=== PATIENT | male | born 1945 | race Caucasian/White ===

== ENCOUNTER 2017-08-13 22:35 | Inpatient (IN) | payer BC, OTHER ==
[2017-08-13 22:52] VITALS: BMI 37.1
[2017-08-14] MEDS ORDERED: SODIUM CHLORIDE 1,000 ML IV ONE (01:18)
[2017-08-14] MEDS ORDERED: ONDANSETRON 4 MG/2 ML VIAL IVPB ONE (01:18)
[2017-08-14] MEDS ORDERED: morphine CARPU-JECT 4 MG/1 ML DISP.SYRIN IVPUSH ONE (01:18)
--- NOTE | 2017-08-14 01:24 | PDOC ---
History of Present Illness - General History Source: Patient Exam Limitations: No Limitations - History of Present Illness Initial Comments: 08/14/17 01:39 The patient is a 72 year old female with no pertinent history who presents to the ED with complaints of right mid/lower quadrant pain since last night. He describes the pain as a constant cramp. The patient complains of associated nausea, vomiting, and diarrhea since last night as well which he describes as watery stool without any blood. He additionally states hes had a loss in appetite and a feeling of lightheadedness. He denies any recent travel, or antibiotic use in the past months. He denies any recent illness, fever, or chills. <Marybeth Pichardo - Last Filed: 08/14/17 01:39> <Emanuel Kenyon - Last Filed: 08/14/17 02:26> <Diana Slade - Last Filed: 08/14/17 07:21> - General Chief Complaint: Nausea/Vomiting Stated Complaint: NAUSEA/VOMITING Time Seen by Provider: 08/13/17 23:39 Past History <Marybeth Pichardo - Last Filed: 08/14/17 01:39> - Past Medical History Diabetes: Yes HTN: Yes - Surgical History Orthopedic Surgery: Yes (2010 right leg sx- metal inserted) - Suicide/Smoking/Psychosocial Hx Smoking Status: No Smoking History: Never smoked Have you smoked in the past 12 months: No Number of Cigarettes Smoked Daily: 0 Information on smoking cessation initiated: No Hx Alcohol Use: No Drug/Substance Use Hx: No Substance Use Type: Alcohol Hx Substance Use Treatment: No <Emanuel Kenyon - Last Filed: 08/14/17 02:26> <Diana Slade - Last Filed: 08/14/17 07:21> - Past Medical History Allergies/Adverse Reactions: Allergies Allergy/AdvReac Type Severity Reaction Status Date / Time No Known Allergies Allergy Verified 08/13/17 22:52 Home Medications: Ambulatory Orders Aspirin [ASA -] 81 mg PO DAILY 03/12/13 Glyburide/Metformin HCl [Glyburide-Metformin 2.5-500 mg] 1 each PO BID 03/12/13 Olmesartan/Hydrochlorothiazide [Benicar Hct 40-25 mg Tablet] 1 each PO DAILY Review of Systems - Review of Systems Constitutional: No: Chills, Fever Respiratory: No: Cough, Shortness of Breath Cardiac (ROS): No: Chest Pain ABD/GI: Yes: See HPI, Diarrhea, Nausea, Vomiting : No: Dysuria All Other Systems: Reviewed and Negative <Emanuel Kenyon - Last Filed: 08/14/17 02:26> *Physical Exam - Vital Signs Last Vital Signs Temp Pulse Resp BP Pulse Ox 99.2 F 81 16 180/90 98 08/13/17 22:50 08/13/17 22:50 08/13/17 22:50 08/13/17 22:50 08/13/17 22:50 - Physical Exam Comments: 08/14/17 01:39 GENERAL: The patient is awake, alert, and fully oriented, in no acute distress. HEAD: Normal with no signs of trauma. EYES: Pupils equal, round and reactive to light, extraocular movements intact, sclera anicteric, conjunctiva clear with no pallor. ENT: Ears normal, nares patent, oropharynx clear without exudates. Dry mucous membranes. NECK: Normal range of motion, supple without lymphadenopathy, JVD, or masses. LUNGS: Breath sounds equal, clear to auscultation bilaterally. No wheeze/ crackles. HEART: Grade III/ systolic ejection murmur. Regular rate and rhythm, normal S1 and S2. ABDOMEN: Tenderness to palpation of right upper and right mid quadrants. Soft/ nondistended. BS wnl. No guarding or rebound. No palpable masses. No hepatosplenomegaly. EXTREMITIES: Normal range of motion, no edema. No clubbing or cyanosis. No cords, erythema, or tenderness. NEUROLOGICAL: Cranial nerves II through XII grossly intact. Normal speech, normal gait. PSYCH: Normal mood, normal affect. SKIN: Warm, Dry, normal turgor, no rashes or lesions noted. <Marybeth Pichardo - Last Filed: 08/14/17 01:39> - Vital Signs Last Vital Signs Temp Pulse Resp BP Pulse Ox 99.2 F 81 16 180/90 98 08/13/17 22:50 08/13/17 22:50 08/13/17 22:50 08/13/17 22:50 08/13/17 22:50 <Emanuel Kenyon - Last Filed: 08/14/17 02:26> - Vital Signs Last Vital Signs Temp Pulse Resp BP Pulse Ox 99.2 F 81 16 180/90 98 08/13/17 22:50 08/13/17 22:50 08/13/17 22:50 08/13/17 22:50 08/13/17 22:50 <Diana Slade - Last Filed: 08/14/17 07:21> ED Treatment Course - LABORATORY CBC & Chemistry Diagram: 08/14/17 01:40 08/14/17 01:40 - RADIOLOGY Radiology Studies Ordered: Category Date Time Status ABDOMEN & PELVIS CT WITH CONTR [CT] Stat CT Scan 08/14/17 01:18 Ordered <Emanuel Kenyon - Last Filed: 08/14/17 02:26> - LABORATORY CBC & Chemistry Diagram: 08/14/17 01:40 08/14/17 01:40 - ADDITIONAL ORDERS Additional order review: Laboratory Results 08/14/17 08/14/17 04:51 01:40 Sodium 142 Potassium 4.0 Chloride 104 Carbon Dioxide 32 D Anion Gap 6 L BUN 14 Creatinine 1.2 Creat Clearance w eGFR 59.51 Random Glucose 191 H D Calcium 9.1 Total Bilirubin 0.6 AST 26 ALT 44 Alkaline Phosphatase 114 D Total Protein 7.3 Albumin 4.0 Lipase 132 Urine Color Ltyellow Urine Appearance Clear Urine pH 5.0 Ur Specific Yale 1.014 Urine Protein Negative Urine Glucose (UA) 1+ H Urine Ketones Trace H Urine Blood Negative Urine Nitrite Negative Urine Bilirubin Negative Urine Urobilinogen Negative Ur Leukocyte Esterase Negative 08/14/17 01:40 RBC 5.20 D MCV 86.6 MCHC 34.0 RDW 13.9 MPV 10.8 Neutrophils % 82.1 D Lymphocytes % 10.8 D Monocytes % 5.6 Eosinophils % 1.1 D Basophils % 0.4 - Medications Given in the ED: ED Medications Discontinued Medications Generic Name Dose Route Start Last Admin Trade Name Freq PRN Reason Stop Dose Admin Sodium Chloride 1,000 mls @ 1,000 mls/hr 08/14/17 01:18 08/14/17 02:00 Normal Saline - IV 08/14/17 02:17 1,000 mls/hr ONCE ONE Administration Morphine Sulfate 4 mg 08/14/17 01:18 08/14/17 02:18 Morphine Injection - IVPUSH 08/14/17 01:19 4 mg ONCE ONE Administration Ondansetron HCl 8 mg 08/14/17 01:18 08/14/17 02:01 Zofran Injection IVPB 08/14/17 01:19 8 mg ONCE ONE Administration <Diana Slade - Last Filed: 08/14/17 07:21> Medical Decision Making - Medical Decision Making 08/14/17 01:19 A portion of this note was documented by scribe services under my direction. I have reviewed the details of the note, within reason, and agree with the documentation with the following case summary and management plan written by me. 72-year-old male with history of diabetes presents with right-sided abdominal pain associated with nausea/vomiting/diarrhea since last night. Nonbloody nonbilious vomiting with watery diarrhea, crampy for persistent right-sided abdominal pain, decreased appetite/by mouth intake with lightheadedness now. No recent sick contacts or travel, no recent antibiotics, no history of abdominal surgeries or recurrent GI infections. Had colonoscopy several years ago but does not recall any abnormalities including diverticulosis. Temp 99.2, vital signs normal Dry mucosa Abdomen is soft and nondistended, right lower and right mid abdominal discomfort without guarding or rebound 72-year-old male with nausea/vomiting/diarrhea/right-sided abdominal pain. Presentation could be consistent with gastroenteritis, but given the focal pain question diverticulitis versus colitis versus appendicitis. labs, ua ivf hydration, anti-emetic, pain control CTAP reassess 08/14/17 02:26 White count 14.5 with normal differential, LFTs and lipase are within normal limits, creatinine normal. Awaiting urinalysis. Awaiting CT of the abdomen and pelvis. Patient was signed out to the oncoming ED physician to follow-up the results, reassess the patient, and dispo accordingly. <Emanuel Kenyon - Last Filed: 08/14/17 02:26> - Medical Decision Making 08/14/17 05:21 I received signout on the patient, and she has mild ketonuria, but no UTI. CT ABD/pelvis pending. 08/14/17 06:54 Patient Name: MASON CANAS THIS IS A PRELIMINARY REPORT FROM [facility] DATE OF SERVICE: 2017-08-14 05:09:26 IMAGES: [id number] EXAM: CT ABDOMEN AND PELVIS with contrast HISTORY: Rule out diverticulitis (further history not provided). COMPARISON: None. FINDINGS: There is mild to moderate wall thickening/edema involving the entire colon. Most likely this represents a pancolitis. Negative for diverticulitis. Negative for appendicitis. No bowel obstruction. Normal kidneys and urinary tracts. Mild thickening of the urinary bladder guerra. Nonspecific but check for UTI. Normal liver. No obvious gallbladder abnormalities. Normal spleen. Normal pancreas. Normal adrenal glands. Osseous structures are intact. THIS DOCUMENT HAS BEEN ELECTRONICALLY SIGNED 08/14/17 07:00 Pt will be admitted to the hospitalist, as he is a patient, who admits to [facility]. Pt will be treated with flagyl, levaquin and ofirmev for fever. <Diana Slade - Last Filed: 08/14/17 07:21> *DC/Admit/Observation/Transfer - Attestations Scribe Attestion: 08/14/17 01:40 Documentation prepared by Marybeth Pichardo, acting as pediatrician/medical doctor for Emanuel Kenyon MD. <Marybeth Pichardo - Last Filed: 08/14/17 01:39> <Emanuel Kenyon - Last Filed: 08/14/17 02:26> - Discharge Dispostion Admit: Yes <Diana Slade - Last Filed: 08/14/17 07:21> Diagnosis at time of Disposition: Vomiting and diarrhea, Pancolitis Abdominal pain Qualifiers: Abdominal location: right lower quadrant Qualified Code(s): R10.31 - Right lower quadrant pain - Discharge Dispostion Condition at time of disposition: Guarded - Referrals Referrals: Shaggy Cho [Primary Care Provider] - - Patient Instructions - Post Discharge Activity
[2017-08-14] MEDS ORDERED: ONDANSETRON 4 MG/2 ML VIAL ONE (01:45)
[2017-08-14] MEDS ORDERED: MORPHINE SULFATE 10 MG/1 ML *VIAL ONE (01:45)
[2017-08-14 01:48] LABS: BASO % 0.4 % (0-2.0); EOS % 1.1 % (0-4.5); HEMATOCRIT 45.1 % (35.4-49); HEMOGLOBIN 15.3 GM/dL (11.7-16.9); LYMPH % 10.8 % (8-40); MCH 29.4 pg (25.7-33.7); MEAN CELL VOLUME 86.6 fl (80-96); MEAN PLT VOLUME 10.8 fl (7.5-11.1); MONO % 5.6 % (3.8-10.2); NEUT % 82.1 % (42.8-82.8); PLATELET COUNT 143 K/MM3 (134-434); RDW 13.9 % (11.9-15.9); WHITE BLOOD COUNT 14.5 K/mm3 (4.0-10.0)
[2017-08-14 02:13] LABS: ALK PHOS 114 U/L (45-117); ANION GAP 6 (8-16); BILIRUBIN,TOTAL 0.6 mg/dL (0.2-1.0); BLOOD UREA NITROGEN 14 mg/dL (7-18); CALCIUM 9.1 mg/dL (8.5-10.1); CHLORIDE 104 mmol/L (98-107); CO2 32 mmol/L (21-32); CREATININE 1.2 mg/dL (0.7-1.3); GLUCOSE,RANDOM 191 mg/dL (74-106); LIPASE 132 U/L (73-393); SGPT/ALT 44 U/L (12-78); SODIUM 142 mmol/L (136-145); TOT PROT 7.3 g/dl (6.4-8.2)
[2017-08-14 02:18] LABS: SGOT/AST 26 U/L (15-37)
[2017-08-14 05:00] LABS: URINE APPEARANCE CLEAR; URINE BILIRUBIN NEGATIVE (NEGATIVE); URINE BLOOD NEGATIVE (NEGATIVE); URINE COLOR LTYELLOW; URINE GLUCOSE (UA) 1+ (NEGATIVE); URINE KETONE TRACE (NEGATIVE); URINE LEUK ESTERASE NEGATIVE (NEGATIVE); URINE NITRITE NEGATIVE (NEGATIVE); URINE PROTEIN NEGATIVE (NEGATIVE); URINE UROBILINOGEN NEGATIVE mg/dL (0.2-1.0)
[2017-08-14] MEDS ORDERED: LEVOFLOXACIN 500 MG IVPB 500 MG/100 ML BAG IVPB ONE ×2 (06:54→07:37)
[2017-08-14] MEDS ORDERED: METRONIDAZOLE 500 MG PREMIXED 500 MG/100 ML MG IVPB ONE ×3 (06:55→18:38)
[2017-08-14] MEDS ORDERED: ACETAMINOPHEN 1000 MG/100 ML VIAL (NON FORMULARY) IVPB ONE (06:58)
[2017-08-14] MEDS ORDERED: ACETAMINOPHEN INJECTION 100 ML IVPB ONE (07:37)
[2017-08-14] MEDS ORDERED: ONDANSETRON 4 MG/2 ML VIAL IVPUSH PRN (10:12)
--- NOTE | 2017-08-14 10:18 | HP ---
Admitting History and Physical - Admission History of Present Illness: 72 year old female with no pertinent history who presents to the ED with complaints of right mid/lower quadrant pain since last night. He describes the pain as a constant cramp. The patient complains of associated nausea, vomiting, and diarrhea since last night as well which he describes as watery stool with blood. He additionally states hes had a loss in appetite and a feeling of lightheadedness. He denies any recent travel, or antibiotic use in the past months. He denies any recent illness, fever, or chills. - Past Medical History Cardiovascular: Yes: HTN, Hyperlipdemia. No: CAD Pulmonary: No: COPD Gastrointestinal: No: Crohn's Disease, GI Bleed, Pancreatitis, Peptic Ulcer Disease Endocrine: Yes: Diabetes Mellitus - Smoking History Smoking history: Never smoked Have you smoked in the past 12 months: No Aproximately how many cigarettes per day: 0 - Alcohol/Substance Use Hx Alcohol Use: No Home Medications - Allergies Allergies/Adverse Reactions: Allergies Allergy/AdvReac Type Severity Reaction Status Date / Time No Known Allergies Allergy Verified 08/13/17 22:52 - Home Medications Home Medications: Ambulatory Orders Amlodipine/Atorvastatin [Amlodipine-Atorvast 5-20 mg] 1 each PO DAILY 08/14/17 Aspirin [ASA -] 81 mg PO DAILY 08/14/17 Atorvastatin Ca [Lipitor] 40 mg PO HS 08/14/17 Carvedilol [Coreg] 12.5 mg PO BID 08/14/17 Folic Acid 1 mg PO DAILY 08/14/17 Gabapentin [Neurontin -] 100 mg PO Q12H 08/14/17 Insulin Degludec/Liraglutide [Xultophy 100 Unit-3.6 mg/ml] 30 unit SQ AM Insulin Lispro [Humalog] 25 unit SQ AM 08/14/17 Omeprazole/Sodium Bicarbonate [Omeprazole-Bicarb 40-1,100 Cap] 1 each PO DAILY 08/14/17 Review of Systems - Review of Systems Neck: reports: No Symptoms Cardiovascular: denies: Chest Pain, Edema Respiratory: denies: Cough, SOB, Wheezing Gastrointestinal: reports: Abdominal Pain, Diarrhea, Nausea, Rectal Bleeding Physical Examination Vital Signs: Vital Signs Temperature 98.9 F 08/14/17 07:30 Pulse Rate 75 08/14/17 07:30 Respiratory Rate 18 08/14/17 07:30 Blood Pressure 167/84 08/14/17 07:30 O2 Sat by Pulse Oximetry (%) 99 08/14/17 07:30 Cardiovascular: Yes: Regular Rate and Rhythm Respiratory: Yes: Regular, CTA Bilaterally Gastrointestinal: Yes: Normal Bowel Sounds, Soft, Tenderness Edema: No Labs: CBC, BMP 08/14/17 01:40 08/14/17 01:40 Imaging - Results Cat Scan: Report Reviewed Problem List - Problems (1) Pancolitis Assessment/Plan: iv abx ivf npo gi consult Code(s): K51.00 - ULCERATIVE (CHRONIC) PANCOLITIS WITHOUT COMPLICATIONS (2) HTN (hypertension) Code(s): I10 - ESSENTIAL (PRIMARY) HYPERTENSION (3) Abdominal pain Assessment/Plan: GI CONSULT MONITOR Code(s): R10.9 - UNSPECIFIED ABDOMINAL PAIN Qualifiers: Abdominal location: right lower quadrant Qualified Code(s): R10.31 - Right lower quadrant pain (4) Diabetes Assessment/Plan: HOLD MEDS SS ENDO Code(s): E11.9 - TYPE 2 DIABETES MELLITUS WITHOUT COMPLICATIONS
[2017-08-14] MEDS ORDERED: PIPERACILLIN/TAZOB 3.375 GM 3.375 GM in DEXTROSE 5%-WATER - 100 ML IVPB SCH (10:30)
[2017-08-14] MEDS ORDERED: PIPERACILLIN/TAZOB 3.375 GM 3.375 GM in DEXTROSE 5%-WATER - 100 ML IVPB ONE (10:45)
[2017-08-14 11:03] LABS: BASO % 0.1 % (0-2.0); EOS % 2.2 % (0-4.5); HEMOGLOBIN 14.6 GM/dL (11.7-16.9); MCHC 33.1 g/dl (32.0-35.9); MEAN CELL VOLUME 87.7 fl (80-96); MEAN PLT VOLUME 10.1 fl (7.5-11.1); MONO % 9.2 % (3.8-10.2); NEUT % 75.5 % (42.8-82.8); PLATELET COUNT 130 K/MM3 (134-434); RBC 5.02 M/mm3 (4.00-5.60); RDW 13.9 % (11.9-15.9); WHITE BLOOD COUNT 13.5 K/mm3 (4.0-10.0)
[2017-08-14 11:36] LABS: ALBUMIN 3.3 g/dl (3.4-5.0); ANION GAP 10 (8-16); BILIRUBIN,TOTAL 0.7 mg/dL (0.2-1.0); BLOOD UREA NITROGEN 11 mg/dL (7-18); CALCIUM 8.1 mg/dL (8.5-10.1); CHLORIDE 105 mmol/L (98-107); CO2 27 mmol/L (21-32); CREATININE 1.1 mg/dL (0.7-1.3); GLUCOSE,RANDOM 173 mg/dL (74-106); POTASSIUM 3.9 mmol/L (3.5-5.1); SGOT/AST 22 U/L (15-37); SGPT/ALT 36 U/L (12-78); SODIUM 142 mmol/L (136-145); TOT PROT 6.6 g/dl (6.4-8.2)
[2017-08-14 11:37] LABS: ALK PHOS 110 U/L (45-117)
[2017-08-14] MEDS ORDERED: PIPERACILLIN/TAZOB 3.375 GM 3.375 GM/50 ML BAG IVPB ONE (11:37)
[2017-08-14] MEDS ORDERED: VALSARTAN 80 MG TABLET (UD) ONE ×2 (11:37→21:55)
--- NOTE | 2017-08-14 11:38 | EKG ---
Test Reason : Blood Pressure : / mmHG Vent. Rate : 078 BPM Atrial Rate : 078 BPM P-R Int : 172 ms QRS Dur : 140 ms QT Int : 396 ms P-R-T Axes : 043 014 146 degrees QTc Int : 451 ms NORMAL SINUS RHYTHM RIGHT BUNDLE BRANCH BLOCK T WAVE ABNORMALITY, CONSIDER INFEROLATERAL ISCHEMIA ABNORMAL ECG WHEN COMPARED WITH ECG OF 12-MAR-2013 08:49, T WAVE INVERSION MORE EVIDENT IN ANTERIOR LEADS Confirmed by MD KINDRA, MICHOACANO ([id number]) on 08/14/2017 11:37:48 AM Referred By: Confirmed By:MICHOACANO ARGUELLES MD
[2017-08-14] MEDS ORDERED: INSULIN (NOVOLOG) ASPART 100 UNITS/ML 10ML VIAL ONE (11:39)
[2017-08-14] MEDS: VALSARTAN 80 MG TABLET (UD) PO SCH ×2 (11:52→22:05)
[2017-08-14] MEDS: INSULIN SLIDING SCALE (NOVOLOG) 1 VIAL SQ SCH ×3 (11:52→22:06)
[2017-08-14] MEDS: PIPERACILLIN/TAZOB 3.375 GM 3.375 GM in DEXTROSE 5%-WATER - 100 ML IVPB SCH ×2 (11:52→18:36)
--- NOTE | 2017-08-14 14:19 | CON.GI ---
Consult Consult Specialty:: GI Referred by:: Shaggy Cho/ Piyush - History of Present Illness History of Present Illness: 72 y/o male was doing well untill 3 days ago when he developed diarrhea 6-10 times a day, non-bloody,no recent travel history, no recent antibiotic use, associated with nausea, vomiting abdominal pain and fever. Today he feels better and is hungry. - Alcohol/Substance Use Hx Alcohol Use: No - Smoking History Smoking history: Never smoked Have you smoked in the past 12 months: No Aproximately how many cigarettes per day: 0 Home Medications - Allergies Allergies/Adverse Reactions: Allergies Allergy/AdvReac Type Severity Reaction Status Date / Time No Known Allergies Allergy Verified 08/13/17 22:52 - Home Medications Home Medications: Ambulatory Orders Amlodipine/Atorvastatin [Amlodipine-Atorvast 5-20 mg] 1 each PO DAILY 08/14/17 Aspirin [ASA -] 81 mg PO DAILY 08/14/17 Atorvastatin Ca [Lipitor] 40 mg PO HS 08/14/17 Carvedilol [Coreg] 12.5 mg PO BID 08/14/17 Folic Acid 1 mg PO DAILY 08/14/17 Gabapentin [Neurontin -] 100 mg PO Q12H 08/14/17 Insulin Degludec/Liraglutide [Xultophy 100 Unit-3.6 mg/ml] 30 unit SQ AM Insulin Lispro [Humalog] 25 unit SQ AM 08/14/17 Omeprazole/Sodium Bicarbonate [Omeprazole-Bicarb 40-1,100 Cap] 1 each PO DAILY 08/14/17 Review of Systems - Review of Systems Constitutional: reports: Fever Eyes: denies: Blind Spots HENT: denies: Difficult Swallowing Neck: denies: Decreased ROM Cardiovascular: denies: Chest Pain Respiratory: denies: SOB Gastrointestinal: reports: Abdominal Pain, Diarrhea, Nausea, Vomiting. denies: Constipation, Dysphagia, Melena, Rectal Bleeding, Vomiting Blood Physical Exam-GI Vital Signs: Vital Signs Temperature 98.9 F 08/14/17 07:30 Pulse Rate 73 08/14/17 12:24 Respiratory Rate 18 08/14/17 12:24 Blood Pressure 183/89 08/14/17 12:24 O2 Sat by Pulse Oximetry (%) 96 08/14/17 12:24 Constitutional: Yes: Well Nourished Eyes: Yes: Conjunctiva Clear Neck: Yes: Trachea Midline Cardiovascular: Yes: Regular Rate and Rhythm Respiratory: Yes: CTA Bilaterally ...Palpate: Yes: Soft. No: Firm/Rigid, Guarding, Hepatomegaly, Mass, Pulsatile Mass, Splenomegaly, Tenderness, Tenderness, Epigastium Labs: CBC, BMP 08/14/17 10:54 08/14/17 10:54 Home Medications Medication Instructions Recorded Amlodipine/Atorvastatin 1 each PO DAILY 08/14/17 [Amlodipine-Atorvast 5-20 mg] Aspirin [ASA -] 81 mg PO DAILY 08/14/17 Atorvastatin Ca [Lipitor] 40 mg PO HS 08/14/17 Carvedilol [Coreg] 12.5 mg PO BID 08/14/17 Folic Acid 1 mg PO DAILY 08/14/17 Gabapentin [Neurontin -] 100 mg PO Q12H 08/14/17 Insulin Degludec/Liraglutide 30 unit SQ AM 08/14/17 [Xultophy 100 Unit-3.6 mg/ml] Insulin Lispro [Humalog] 25 unit SQ AM 08/14/17 Omeprazole/Sodium Bicarbonate 1 each PO DAILY 08/14/17 [Omeprazole-Bicarb 40-1,100 Cap] Imaging - Results Cat Scan: Image Reviewed Problem List - Problems (1) Infectious diarrhea Assessment/Plan: R> continue Zosyn and FLagyl clear liquid if tolerated lactose free low fiber diabetic diet IV hydration made aware to follow-up fo outpatient colonoscopy Code(s): A09 - INFECTIOUS GASTROENTERITIS AND COLITIS, UNSPECIFIED
[2017-08-14] MEDS ORDERED: METOCLOPRAMIDE HCL INJECTION 10 MG/2 ML VIAL ONE ×2 (14:33→18:28)
[2017-08-14] MEDS: SODIUM CHLORIDE 1,000 ML IV SCH (14:39)
[2017-08-14] MEDS: METOCLOPRAMIDE HCL INJECTION 10 MG/2 ML VIAL IVPB SCH ×2 (14:40→18:36)
[2017-08-14] MEDS ORDERED: PIPERACIL/TAZOB 3.375 GM 3.375 GM/50 ML PREMIX IVPB SCH (18:00)
[2017-08-14] MEDS: METRONIDAZOLE 500 MG PREMIXED 500 MG/100 ML MG IVPB SCH (19:01)
[2017-08-14] MEDS ORDERED: HEPARIN NA (PORCINE) 5,000 UNITS/ML 1ML VIAL ONE (21:56)
[2017-08-14] MEDS ORDERED: HEMOQUE TEST 1 EACH EACH ONE (21:59)
[2017-08-14] MEDS: HEPARIN NA (PORCINE) 5,000 UNITS/ML 1ML VIAL SQ SCH (22:06)
[2017-08-15] MEDS ORDERED: PIPERACILLIN/TAZOB 3.375 GM 3.375 GM/50 ML BAG IVPB ONE (03:20)
[2017-08-15] MEDS: PIPERACILLIN/TAZOB 3.375 GM 3.375 GM in DEXTROSE 5%-WATER - 100 ML IVPB SCH (03:33)
[2017-08-15] MEDS ORDERED: METRONIDAZOLE 500 MG PREMIXED 500 MG/100 ML MG IVPB ONE (05:53)
[2017-08-15] MEDS ORDERED: METOCLOPRAMIDE HCL INJECTION 10 MG/2 ML VIAL ONE (05:53)
[2017-08-15] MEDS: METOCLOPRAMIDE HCL INJECTION 10 MG/2 ML VIAL IVPB SCH ×3 (05:58→17:20)
[2017-08-15] MEDS: METRONIDAZOLE 500 MG PREMIXED 500 MG/100 ML MG IVPB SCH ×3 (05:58→17:19)
[2017-08-15] MEDS: INSULIN SLIDING SCALE (NOVOLOG) 1 VIAL SQ SCH ×4 (07:50→22:08)
[2017-08-15 08:08] LABS: BASO % 0.2 % (0-2.0); EOS % 5.9 % (0-4.5); HEMATOCRIT 41.9 % (35.4-49); HEMOGLOBIN 13.9 GM/dL (11.7-16.9); LYMPH % 22.8 % (8-40); MCH 28.8 pg (25.7-33.7); MCHC 33.2 g/dl (32.0-35.9); MEAN CELL VOLUME 86.5 fl (80-96); MEAN PLT VOLUME 10.7 fl (7.5-11.1); MONO % 7.2 % (3.8-10.2); NEUT % 63.9 % (42.8-82.8); PLATELET COUNT 125 K/MM3 (134-434); RBC 4.84 M/mm3 (4.00-5.60); WHITE BLOOD COUNT 11.3 K/mm3 (4.0-10.0)
[2017-08-15 08:29] LABS: CHLORIDE 107 mmol/L (98-107); POTASSIUM 3.5 mmol/L (3.5-5.1); SODIUM 143 mmol/L (136-145)
[2017-08-15 08:36] LABS: ALK PHOS 92 U/L (45-117); ANION GAP 9 (8-16); BILIRUBIN,TOTAL 0.7 mg/dL (0.2-1.0); BLOOD UREA NITROGEN 8 mg/dL (7-18); CALCIUM 7.4 mg/dL (8.5-10.1); CO2 27 mmol/L (21-32); GLUCOSE,RANDOM 142 mg/dL (74-106); SGOT/AST 14 U/L (15-37); SGPT/ALT 27 U/L (12-78); TOT PROT 5.8 g/dl (6.4-8.2)
[2017-08-15 09:07] LABS: INR 1.07 (0.82-1.09); PROTHROMBIN TIME (PATIENT) 12.1 SEC (9.98-11.88)
--- NOTE | 2017-08-15 09:34 | PN ---
Progress Note (short form) - Note Progress Note: ID Consult dictated Acute gastroenteritis Leukocytosis Await stool studies Empiric ceftriaxone/ flagyl
--- NOTE | 2017-08-15 11:04 | CONS ---
DATE OF CONSULTATION: HISTORY: The patient is a 72-year-old diabetic male who is evaluated for acute gastroenteritis. He reports a 1-day history of worsening lower abdominal cramping associated with nausea, vomiting, and nonbloody diarrhea. He reports having 6-10 loose, nonbloody stools prior to admission. In addition, he complained of some anorexia. He was seen in the emergency room where a CAT scan was performed and showed pancolitis. There was no evidence of acute appendicitis. Cultures were obtained, and he was empirically treated with Levaquin and Flagyl. The patient lives at home in the community. He denies any ill contacts. No family members with acute gastroenteritis. He denies any recent travel or antibiotic therapy. No prior history of inflammatory bowel disease. PAST MEDICAL HISTORY: Positive for diabetes mellitus, hypertension, hyperlipidemia. ALLERGIES: No known allergies. MEDICATIONS: Aspirin, glyburide, Benicar. SOCIAL HISTORY: He lives at home with family members. He is a nonsmoker, nondrinker. No recent travel, hospitalizations, or antibiotic usage. SYSTEMS REVIEW: Neurologic: No loss of consciousness, seizure activity, focal weakness. Cardiac: Negative chest pain or palpitations. Respiratory: Negative cough or sputum production. Gastrointestinal: As per HPI. Genitourinary: Negative for urinary tract infection. LABORATORY DATA: White count on admission 14.5, presently 11.3 with 5 eosinophils, hematocrit 41.9, platelet count 125, BUN 8, creatinine 1. Urinalysis negative. Blood cultures pending. CAT scan shows evidence of pancolitis. PHYSICAL EXAMINATION: General: On examination, he is awake and alert. He is in no acute distress. Vital Signs: Temperature 97.6, blood pressure 135/72, pulse 68 and regular, respirations 16 per minute. HEENT: Sclerae anicteric. Heart: Sounds S1, S2. Lungs: Clear bilaterally. Abdomen: Positive bowel sounds. Abdomen is obese, soft. No tenderness elicited. No mass, rebound, or rigidity. Extremities: Negative for edema. IMPRESSION: 1. Acute gastroenteritis. 2. Pancolitis by CT. 3. Leukocytosis. Suspect infectious colitis. Await stool studies. Obtain stool culture and sensitivity, ova and parasite, Clostridium difficile, stool for Rotavirus and Norovirus. Empiric antibiotic coverage with ceftriaxone and Flagyl. Further recommendations pending cultures and stool studies. GI follow up. Thank you for the kind referral. AMBERLY ARANA M.D. [id number]
--- NOTE | 2017-08-15 11:31 | PN ---
Progress Note, Physician Chief Complaint: awake alert in bed - Current Medication List Current Medications: Active Medications Acetaminophen (Tylenol -) 650 mg PO Q4H PRN PRN Reason: FEVER Heparin Sodium (Porcine) (Heparin -) 5,000 unit SQ BID [facility] Last Admin: 08/14/17 22:06 Dose: 5,000 unit Metronidazole (Flagyl 500mg Premixed Ivpb -) 500 mg in 100 mls @ 100 mls/hr IVPB Q8H-IV [facility] Last Admin: 08/15/17 05:58 Dose: 100 mls/hr Sodium Chloride (Normal Saline -) 1,000 mls @ 150 mls/hr IV ASDIR [facility] Stop: 08/16/17 21:09 Last Admin: 08/14/17 14:39 Dose: 150 mls/hr CEFTRIAXONE IN IS-OSM DEXTROSE (Ceftriaxone 2 Gm-D5w Bag) 2 gm in 50 mls @ 100 mls/hr IVPB DAILY [facility] Insulin Aspart (Novolog Vial Sliding Scale -) 1 vial SQ ACHS KIARRA PRN Reason: Protocol Last Admin: 08/15/17 07:50 Dose: Not Given Metoclopramide HCl (Reglan Injection -) 10 mg IVPB Q8H-IV [facility] Last Admin: 08/15/17 05:58 Dose: 10 mg Ondansetron HCl (Zofran Injection) 4 mg IVPUSH Q6H PRN PRN Reason: NAUSEA Valsartan (Diovan -) 80 mg PO BID [facility] Last Admin: 08/14/17 22:05 Dose: 80 mg - Objective Vital Signs: Vital Signs Temperature 97.6 F 08/15/17 09:00 Pulse Rate 68 08/15/17 09:00 Respiratory Rate 16 08/15/17 09:00 Blood Pressure 135/72 08/15/17 09:00 O2 Sat by Pulse Oximetry (%) 97 08/15/17 09:00 Constitutional: Yes: Calm Cardiovascular: Yes: Regular Rate and Rhythm, S1, S2 Respiratory: Yes: CTA Bilaterally Gastrointestinal: Yes: Soft Neurological: Yes: Alert, Oriented Labs: CBC, BMP 08/15/17 07:42 08/15/17 07:42 INR, PTT INR 1.07 (0.82-1.09) 08/15/17 07:42 Problem List - Problems (1) Infectious diarrhea Assessment/Plan: gi consult appreicated on rocephin and flagyl wbc still elevated now trending down on reglan and zofran as well trial of lactose free low fibre diabetic diet for lunch stool studies pending Code(s): A09 - INFECTIOUS GASTROENTERITIS AND COLITIS, UNSPECIFIED (2) Diabetes Assessment/Plan: bgm noted on clear diet when he tolerates regular will restart meds Code(s): E11.9 - TYPE 2 DIABETES MELLITUS WITHOUT COMPLICATIONS Qualifiers: Diabetes mellitus complication detail: with other circulatory complications (3) HTN (hypertension) Assessment/Plan: continue valsartan Code(s): I10 - ESSENTIAL (PRIMARY) HYPERTENSION
[2017-08-15] MEDS: VALSARTAN 80 MG TABLET (UD) PO SCH ×2 (12:41→22:07)
--- NOTE | 2017-08-15 12:49 | EKG ---
Test Reason : Blood Pressure : / mmHG Vent. Rate : 068 BPM Atrial Rate : 068 BPM P-R Int : 164 ms QRS Dur : 136 ms QT Int : 436 ms P-R-T Axes : 053 023 173 degrees QTc Int : 463 ms NORMAL SINUS RHYTHM RIGHT BUNDLE BRANCH BLOCK SEPTAL INFARCT , AGE UNDETERMINED T WAVE ABNORMALITY, CONSIDER INFEROLATERAL ISCHEMIA ABNORMAL ECG WHEN COMPARED WITH ECG OF 14-AUG-2017 06:59, NO SIGNIFICANT CHANGE WAS FOUND Confirmed by JAMES DIXON, ROB ([id number]) on 08/15/2017 12:48:41 PM Referred By: Confirmed By:ROB RAMIREZ MD
[2017-08-15] MEDS: HEPARIN NA (PORCINE) 5,000 UNITS/ML 1ML VIAL SQ SCH ×2 (14:02→22:07)
[2017-08-15] MEDS ORDERED: PT OWN MED DRAWER 7, Y5N ONE (14:42)
[2017-08-15] MEDS: CEFTRIAXONE IN IS-OSM DEXTROSE 2 GM/50 ML BAG IVPB SCH (16:13)
[2017-08-15] MEDS: SODIUM CHLORIDE 1,000 ML IV SCH (17:14)
[2017-08-16] MEDS: SODIUM CHLORIDE 1,000 ML IV SCH ×2 (01:11→17:14)
[2017-08-16] MEDS: METOCLOPRAMIDE HCL INJECTION 10 MG/2 ML VIAL IVPB SCH ×3 (01:33→17:15)
[2017-08-16] MEDS: METRONIDAZOLE 500 MG PREMIXED 500 MG/100 ML MG IVPB SCH ×3 (02:10→17:15)
[2017-08-16] MEDS: INSULIN SLIDING SCALE (NOVOLOG) 1 VIAL SQ SCH ×4 (06:10→21:31)
[2017-08-16] MEDS: PIPERACILLIN/TAZOB 3.375 GM 3.375 GM in DEXTROSE 5%-WATER - 100 ML IVPB SCH (08:22)
[2017-08-16] MEDS: VALSARTAN 80 MG TABLET (UD) PO SCH ×2 (10:22→21:20)
[2017-08-16] MEDS: HEPARIN NA (PORCINE) 5,000 UNITS/ML 1ML VIAL SQ SCH ×2 (10:22→21:20)
--- NOTE | 2017-08-16 11:16 | PN ---
Progress Note, Physician Chief Complaint: Abdominal pain, Diarrhea,N/V History of Present Illness: NAD - Current Medication List Current Medications: Active Medications Acetaminophen (Tylenol -) 650 mg PO Q4H PRN PRN Reason: FEVER Heparin Sodium (Porcine) (Heparin -) 5,000 unit SQ BID [facility] Last Admin: 08/16/17 10:22 Dose: 5,000 unit Metronidazole (Flagyl 500mg Premixed Ivpb -) 500 mg in 100 mls @ 100 mls/hr IVPB Q8H-IV [facility] Last Admin: 08/16/17 10:22 Dose: 100 mls/hr Sodium Chloride (Normal Saline -) 1,000 mls @ 150 mls/hr IV ASDIR [facility] Stop: 08/16/17 21:09 Last Admin: 08/16/17 01:11 Dose: 150 mls/hr CEFTRIAXONE IN IS-OSM DEXTROSE (Ceftriaxone 2 Gm-D5w Bag) 2 gm in 50 mls @ 100 mls/hr IVPB DAILY [facility] Last Admin: 08/15/17 16:13 Dose: 100 mls/hr Insulin Aspart (Novolog Vial Sliding Scale -) 1 vial SQ ACHS [facility] PRN Reason: Protocol Last Admin: 08/16/17 06:10 Dose: Not Given Metoclopramide HCl (Reglan Injection -) 10 mg IVPB Q8H-IV [facility] Last Admin: 08/16/17 10:22 Dose: 10 mg Ondansetron HCl (Zofran Injection) 4 mg IVPUSH Q6H PRN PRN Reason: NAUSEA Valsartan (Diovan -) 80 mg PO BID [facility] Last Admin: 08/16/17 10:22 Dose: 80 mg - Objective Vital Signs: Vital Signs Temperature 98.2 F 08/16/17 06:00 Pulse Rate 68 08/16/17 06:00 Respiratory Rate 20 08/16/17 06:00 Blood Pressure 156/99 08/16/17 06:00 O2 Sat by Pulse Oximetry (%) 99 08/15/17 22:00 Constitutional: Yes: Well Nourished, No Distress, Calm Cardiovascular: Yes: Regular Rate and Rhythm Respiratory: Yes: Regular Gastrointestinal: Yes: WNL Musculoskeletal: Yes: WNL Extremities: Yes: WNL Edema: No Peripheral Pulses WNL: Yes Neurological: Yes: Alert, Oriented Psychiatric: Yes: Alert, Oriented Labs: CBC, BMP 08/15/17 07:42 08/15/17 07:42 INR, PTT INR 1.07 (0.82-1.09) 08/15/17 07:42 Problem List - Problems (1) Abdominal pain Assessment/Plan: -Stool studies pending -ID consult on board -GI consult on board -IV abx -reglan zofran Code(s): R10.9 - UNSPECIFIED ABDOMINAL PAIN Qualifiers: Abdominal location: right lower quadrant Qualified Code(s): R10.31 - Right lower quadrant pain (2) Pancolitis Code(s): K51.00 - ULCERATIVE (CHRONIC) PANCOLITIS WITHOUT COMPLICATIONS (3) Vomiting and diarrhea Code(s): R11.10 - VOMITING, UNSPECIFIED; R19.7 - DIARRHEA, UNSPECIFIED Assessment/Plan see problem list
--- NOTE | 2017-08-16 12:23 | PN ---
Progress Note, Physician History of Present Illness: Awake, alert OOB in chair No c/o abdominal pain No N/V BM x 1 this morning C/O pain behind L knee - Current Medication List Current Medications: Active Medications Acetaminophen (Tylenol -) 650 mg PO Q4H PRN PRN Reason: FEVER Heparin Sodium (Porcine) (Heparin -) 5,000 unit SQ BID [facility] Last Admin: 08/16/17 10:22 Dose: 5,000 unit Metronidazole (Flagyl 500mg Premixed Ivpb -) 500 mg in 100 mls @ 100 mls/hr IVPB Q8H-IV [facility] Last Admin: 08/16/17 10:22 Dose: 100 mls/hr Sodium Chloride (Normal Saline -) 1,000 mls @ 150 mls/hr IV ASDIR [facility] Stop: 08/16/17 21:09 Last Admin: 08/16/17 01:11 Dose: 150 mls/hr CEFTRIAXONE IN IS-OSM DEXTROSE (Ceftriaxone 2 Gm-D5w Bag) 2 gm in 50 mls @ 100 mls/hr IVPB DAILY [facility] Last Admin: 08/15/17 16:13 Dose: 100 mls/hr Insulin Aspart (Novolog Vial Sliding Scale -) 1 vial SQ ACHS [facility] PRN Reason: Protocol Last Admin: 08/16/17 11:24 Dose: 2 unit Metoclopramide HCl (Reglan Injection -) 10 mg IVPB Q8H-IV [facility] Last Admin: 08/16/17 10:22 Dose: 10 mg Ondansetron HCl (Zofran Injection) 4 mg IVPUSH Q6H PRN PRN Reason: NAUSEA Valsartan (Diovan -) 80 mg PO BID [facility] Last Admin: 08/16/17 10:22 Dose: 80 mg - Objective Vital Signs: Vital Signs Temperature 97.4 F L 08/16/17 10:00 Pulse Rate 84 08/16/17 10:00 Respiratory Rate 18 08/16/17 10:00 Blood Pressure 181/84 08/16/17 10:00 O2 Sat by Pulse Oximetry (%) 99 08/15/17 22:00 Constitutional: Yes: No Distress, Obese Eyes: Yes: Conjunctiva Clear Cardiovascular: Yes: Regular Rate and Rhythm, S1, S2 Respiratory: Yes: CTA Bilaterally Gastrointestinal: Yes: Normal Bowel Sounds, Soft, Abdomen, Obese. No: Tenderness Extremities: Yes: Other (L LE swelling. + tenderness L popliteal fossa. No calf tenderness.) Labs: CBC, BMP 08/15/17 07:42 08/15/17 07:42 INR, PTT INR 1.07 (0.82-1.09) 08/15/17 07:42 Assessment/Plan Colitis ? infectious etiology R/O L LE DVT Leukocytosis - improved await stool studies, cultures Doppler L LE Continue empiric ceftiaxone/ flagyl
[2017-08-16] MEDS: CEFTRIAXONE IN IS-OSM DEXTROSE 2 GM/50 ML BAG IVPB SCH (14:02)
[2017-08-16] MEDS ORDERED: PT OWN MED DRAWER 7, Y5N ONE (14:31)
[2017-08-16] MEDS: ACETAMINOPHEN 325 MG TABLET (FP) PO PRN (16:18)
--- NOTE | 2017-08-16 18:53 | PN ---
GI Progress Note Subjective: diarrhea resolved, no nausea, no vomiting, complains of left leg pain - Objective Vital Signs: Vital Signs Temperature 99.3 F 08/16/17 17:23 Pulse Rate 82 08/16/17 17:23 Respiratory Rate 18 08/16/17 17:23 Blood Pressure 161/83 08/16/17 17:23 O2 Sat by Pulse Oximetry (%) 97 08/16/17 10:00 Constitutional: Well Nourished Eyes: Yes: Conjunctiva Clear HENT: Yes: Atraumatic Cardiovascular: Yes: Regular Rate and Rhythm Respiratory: Yes: CTA Bilaterally ...Palpate: Yes: Soft. No: Firm/Rigid, Guarding, Hepatomegaly, Mass, Pulsatile Mass, Splenomegaly, Tenderness, Tenderness, Epigastium Labs: CBC, BMP 08/15/17 07:42 08/15/17 07:42 INR, PTT INR 1.07 (0.82-1.09) 08/15/17 07:42 Problem List - Problems (1) Infectious diarrhea Assessment/Plan: --resolving, patient with low grade temp, etiology unclear R> made aware to follow okay to d/c antibiocs gi viewpoint if ok with id Code(s): A09 - INFECTIOUS GASTROENTERITIS AND COLITIS, UNSPECIFIED
[2017-08-17] MEDS: ACETAMINOPHEN 325 MG TABLET (FP) PO PRN ×2 (00:36→09:19)
[2017-08-17] MEDS: METRONIDAZOLE 500 MG PREMIXED 500 MG/100 ML MG IVPB SCH ×2 (01:14→09:18)
[2017-08-17] MEDS: METOCLOPRAMIDE HCL INJECTION 10 MG/2 ML VIAL IVPB SCH ×2 (02:34→09:18)
[2017-08-17] MEDS: INSULIN SLIDING SCALE (NOVOLOG) 1 VIAL SQ SCH ×2 (06:27→11:31)
[2017-08-17] MEDS ORDERED: INSULIN DETEMIR 100 UNITS/ML MDV SQ SCH (07:00)
[2017-08-17] MEDS: HEPARIN NA (PORCINE) 5,000 UNITS/ML 1ML VIAL SQ SCH (09:19)
[2017-08-17] MEDS: VALSARTAN 80 MG TABLET (UD) PO SCH (09:19)
[2017-08-17 10:39] VITALS: BP 124/71; PULSE 85; TEMP 98.9
[2017-08-17] MEDS: CEFTRIAXONE IN IS-OSM DEXTROSE 2 GM/50 ML BAG IVPB SCH (11:01)
--- NOTE | 2017-08-17 11:08 | PN ---
Progress Note, Physician History of Present Illness: Awake, alert OOB in chair No c/o abdominal pain. No N/V Diarrhea resolved Doppler L LE revealed Henry's cyst - Current Medication List Current Medications: Active Medications Acetaminophen (Tylenol -) 650 mg PO Q4H PRN PRN Reason: FEVER Last Admin: 08/17/17 09:19 Dose: 650 mg Heparin Sodium (Porcine) (Heparin -) 5,000 unit SQ BID [facility] Last Admin: 08/17/17 09:19 Dose: 5,000 unit Metronidazole (Flagyl 500mg Premixed Ivpb -) 500 mg in 100 mls @ 100 mls/hr IVPB Q8H-IV [facility] Last Admin: 08/17/17 09:18 Dose: 100 mls/hr CEFTRIAXONE IN IS-OSM DEXTROSE (Ceftriaxone 2 Gm-D5w Bag) 2 gm in 50 mls @ 100 mls/hr IVPB DAILY [facility] Last Admin: 08/17/17 11:01 Dose: 100 mls/hr Insulin Aspart (Novolog Vial Sliding Scale -) 1 vial SQ ACHS [facility] PRN Reason: Protocol Last Admin: 08/17/17 06:27 Dose: Not Given Insulin Detemir (Levemir Vial) 10 units SQ BID@0700,2200 [facility] Last Admin: 08/17/17 06:27 Dose: 10 units Metoclopramide HCl (Reglan Injection -) 10 mg IVPB Q8H-IV [facility] Last Admin: 08/17/17 09:18 Dose: 10 mg Ondansetron HCl (Zofran Injection) 4 mg IVPUSH Q6H PRN PRN Reason: NAUSEA Valsartan (Diovan -) 80 mg PO BID [facility] Last Admin: 08/17/17 09:19 Dose: 80 mg - Objective Vital Signs: Vital Signs Temperature 98.9 F 08/17/17 10:00 Pulse Rate 85 08/17/17 10:00 Respiratory Rate 18 08/17/17 10:00 Blood Pressure 124/71 08/17/17 10:00 O2 Sat by Pulse Oximetry (%) 97 08/16/17 22:00 Constitutional: Yes: No Distress Eyes: Yes: Conjunctiva Clear Cardiovascular: Yes: Regular Rate and Rhythm, S1, S2 Respiratory: Yes: CTA Bilaterally Gastrointestinal: Yes: Normal Bowel Sounds, Soft. No: Tenderness Extremities: Yes: Other (+ L LE edema. + tenderness, popliteal fossa) Edema: Yes Labs: CBC, BMP 08/15/17 07:42 08/15/17 07:42 INR, PTT INR 1.07 (0.82-1.09) 08/15/17 07:42 Assessment/Plan Colitis improved. Diarrhea resolved Stool c/s yeast + pending organism- probable contaminant R/O L LE DVT Leukocytosis - improved D/C antibiotics, observe off
[2017-08-17] MEDS ORDERED: INSULIN (NOVOLOG) ASPART 100 UNITS/ML 10ML VIAL ONE (11:18)
--- NOTE | 2017-08-17 11:31 | DS ---
Physical Examination Vital Signs: Vital Signs Temperature 98.9 F 08/17/17 10:00 Pulse Rate 85 08/17/17 10:00 Respiratory Rate 18 08/17/17 10:00 Blood Pressure 124/71 08/17/17 10:00 O2 Sat by Pulse Oximetry (%) 97 08/16/17 22:00 Constitutional: Yes: Well Nourished, No Distress, Calm Cardiovascular: Yes: Regular Rate and Rhythm Respiratory: Yes: Regular Gastrointestinal: Yes: Normal Bowel Sounds, Soft Musculoskeletal: Yes: WNL Extremities: Yes: WNL Edema: No Peripheral Pulses WNL: Yes Neurological: Yes: Alert, Oriented Psychiatric: Yes: Alert, Oriented Labs: CBC, BMP 08/15/17 07:42 08/15/17 07:42 Discharge Summary Reason For Visit: ABD PAIN/ ULCERATIVE PANCOLITIS Current Active Problems Abdominal pain (Acute) Diabetes (Acute) HTN (hypertension) (Acute) Infectious diarrhea (Acute) Pancolitis (Acute) Vomiting and diarrhea (Acute) Hospital Course: 72 year old female with no pertinent history who presents to the ED with complaints of right mid/lower quadrant pain since last night. He describes the pain as a constant cramp. The patient complains of associated nausea, vomiting, and diarrhea since last night as well which he describes as watery stool with blood. He additionally states hes had a loss in appetite and a feeling of lightheadedness. He denies any recent travel, or antibiotic use in the past months. He denies any recent illness, fever, or chills. Condition: Stable - Instructions Diet, Activity, Other Instructions: -F/U with Dr Espinosa outpatient within next 2 weeks -F/U with Cooper Marrufo for left lower extremity magaña's cyst. Referrals: Shaggy Cho [Primary Care Provider] - Phil Espinosa MD [Staff Physician] - Cooper Salazar MD [Staff Physician] - Disposition: HOME - Home Medications Comprehensive Discharge Medication List: Ambulatory Orders Amlodipine/Atorvastatin [Amlodipine-Atorvast 5-20 mg] 1 each PO DAILY 08/14/17 Aspirin [ASA -] 81 mg PO DAILY 08/14/17 Atorvastatin Ca [Lipitor] 40 mg PO HS 08/14/17 Carvedilol [Coreg] 12.5 mg PO BID 08/14/17 Folic Acid 1 mg PO DAILY 08/14/17 Gabapentin [Neurontin -] 100 mg PO Q12H 08/14/17 Insulin Degludec/Liraglutide [Xultophy 100 Unit-3.6 mg/ml] 30 unit SQ AM Insulin Lispro [Humalog] 25 unit SQ AM 08/14/17 Omeprazole/Sodium Bicarbonate [Omeprazole-Bicarb 40-1,100 Cap] 1 each PO DAILY 08/14/17
--- NOTE | 2017-08-17 12:30 | CONSULT ---
Consult Consult Specialty:: endocrine Referred by:: ravindra soto np Reason for Consultation:: diabetes mellitus - History of Present Illness Chief Complaint: abdominal pain History of Present Illness: 72 year old female with no pertinent history who presents to the ED with complaints of right mid/lower quadrant pain since last night. He describes the pain as a constant cramp on admission,subsiding since decreased intake,and ivfluid now has tolerated diet and continues to observe diet restriction with improved blood sugars, - History Source History Provided By: Patient - Past Medical History Cardio/Vascular: Yes: HTN, Hyperlipdemia. No: CAD Pulmonary: No: COPD Gastrointestinal: No: Crohn's Disease, GI Bleed, Pancreatitis, Peptic Ulcer Disease Endocrine: Yes: Diabetes Mellitus - Alcohol/Substance Use Hx Alcohol Use: No - Smoking History Smoking history: Never smoked Have you smoked in the past 12 months: No Aproximately how many cigarettes per day: 0 Home Medications - Allergies Allergies/Adverse Reactions: Allergies Allergy/AdvReac Type Severity Reaction Status Date / Time No Known Allergies Allergy Verified 08/13/17 22:52 - Home Medications Home Medications: Ambulatory Orders Amlodipine/Atorvastatin [Amlodipine-Atorvast 5-20 mg] 1 each PO DAILY 08/14/17 Aspirin [ASA -] 81 mg PO DAILY 08/14/17 Atorvastatin Ca [Lipitor] 40 mg PO HS 08/14/17 Carvedilol [Coreg] 12.5 mg PO BID 08/14/17 Folic Acid 1 mg PO DAILY 08/14/17 Gabapentin [Neurontin -] 100 mg PO Q12H 08/14/17 Insulin Degludec/Liraglutide [Xultophy 100 Unit-3.6MG/ml Pen] 30 unit SQ AM Insulin Lispro [Humalog] 25 unit SQ AM 08/14/17 Omeprazole/Sodium Bicarbonate [Omeprazole-Bicarb 40-1,100 Cap] 1 each PO DAILY 08/14/17 Review of Systems - Review of Systems Constitutional: reports: Loss of Appetite Eyes: reports: No Symptoms HENT: reports: No Symptoms Neck: reports: No Symptoms Cardiovascular: reports: No Symptoms Respiratory: reports: Exercise Intolerance Gastrointestinal: reports: Bloating Breasts: reports: No Symptoms Reported Musculoskeletal: reports: Joint Pain Integumentary: reports: No Symptoms Neurological: reports: Weakness Endocrine: reports: No Symptoms Physical Exam Vital Signs: Vital Signs Temperature 98.9 F 08/17/17 10:00 Pulse Rate 85 08/17/17 10:00 Respiratory Rate 18 08/17/17 10:00 Blood Pressure 124/71 08/17/17 10:00 O2 Sat by Pulse Oximetry (%) 99 08/17/17 10:00 Constitutional: Yes: Calm Eyes: Yes: EOM Intact HENT: Yes: Normocephalic Neck: Yes: Trachea Midline Cardiovascular: Yes: Regular Rate and Rhythm Respiratory: Yes: CTA Bilaterally Gastrointestinal: Yes: Normal Bowel Sounds ...Rectal Exam: Yes: Deferred Renal/: Yes: WNL Breast(s): Yes: WNL Musculoskeletal: Yes: WNL Extremities: Yes: WNL Peripheral Pulses WNL: Yes Neurological: Yes: WNL ...Motor Strength: WNL Labs: CBC, BMP 08/15/17 07:42 08/15/17 07:42 Problem List - Problems (1) Diabetes Code(s): E11.9 - TYPE 2 DIABETES MELLITUS WITHOUT COMPLICATIONS Qualifiers: Diabetes mellitus complication detail: with other circulatory complications (2) HTN (hypertension) Code(s): I10 - ESSENTIAL (PRIMARY) HYPERTENSION (3) Infectious diarrhea Code(s): A09 - INFECTIOUS GASTROENTERITIS AND COLITIS, UNSPECIFIED Assessment/Plan Current Active Problems Abdominal pain (Acute) Diabetes (Acute) HTN (hypertension) (Acute) Infectious diarrhea (Acute) Pancolitis (Acute) Vomiting and diarrhea (Acute) Laboratory Results - last 24 hr 08/16/17 08/16/17 08/17/17 17:21 21:23 05:58 POC Glucometer 142 247 145 08/17/17 11:29 POC Glucometer 282 plan: continue bgm qid novolog insulin resume levemir 10 units bid diet and nutrition consult follow up out patient
== END 2017-08-17 13:17 | disposition home or self-care (01) | DRG 392 ==
LOC: JER 22:35 → JERBED 08-14 08:44 → J8W 08-15 13:18
PROVIDERS: ADMIT Internal Medicine; ATTEND Family Medicine
DX: A09 Infectious gastroenteritis and colitis, unspecified (principal); E11.9 Type 2 diabetes mellitus without complications; R10.9 Unspecified abdominal pain; I10 Essential (primary) hypertension; D72.829 Elevated white blood cell count, unspecified
CPT/HCPCS: 36415; 74177-TC; 80053; 81003; 82962; 83690; 85025; 85610; 87040; 87045; 87046; 87205; 87324; 87449; 93005; 93010; 93971-TC; 99285-25; J1644

== ENCOUNTER 2018-05-13 20:29 | Emergency (ER) | payer MEDICARE, OTHER ==
[2018-05-13 20:47] VITALS: BMI 40.7
--- NOTE | 2018-05-13 21:22 | PDOC ---
History of Present Illness - General Chief Complaint: Pain Stated Complaint: PAIN Time Seen by Provider: 05/13/18 21:19 History Source: Patient Exam Limitations: No Limitations Past History - Past Medical History Allergies/Adverse Reactions: Allergies Allergy/AdvReac Type Severity Reaction Status Date / Time No Known Allergies Allergy Verified 05/13/18 20:46 Home Medications: Ambulatory Orders Ibuprofen [Motrin -] 800 mg PO TID PRN 11/24/13 Insulin (Levemir) [Levemir Flexpen -] 10 units SQ BID 11/24/13 Olmesartan Med/Amlodipine/Hctz [Tribenzor 40-10-12.5 mg Tablet] 1 each PO DAILY 11/24/13 Aspirin [ASA -] 81 mg PO DAILY 08/14/17 Atorvastatin Ca [Lipitor] 40 mg PO HS 08/14/17 Carvedilol [Coreg] 12.5 mg PO BID 08/14/17 Folic Acid 1 mg PO DAILY 08/14/17 Gabapentin [Neurontin -] 100 mg PO Q12H 08/14/17 Insulin Degludec/Liraglutide [Xultophy 100 Unit-3.6MG/ml Pen] 30 unit SQ AM Insulin Lispro [Humalog] 25 unit SQ AM 08/14/17 Azithromycin [Zithromax 250mg Tablets -] 250 mg PO UTDICT #6 tab 05/14/18 Furosemide [Lasix] 20 mg PO DAILY #14 tablet 05/14/18 COPD: No Diabetes: Yes HTN: Yes Hypercholesterolemia: Yes - Surgical History Cardiac Surgery: Yes (valve replacement) Orthopedic Surgery: Yes (2009 right leg sx- metal inserted) - Immunization History Immunization Up to Date: Yes - Suicide/Smoking/Psychosocial Hx Smoking Status: No Smoking History: Never smoked Have you smoked in the past 12 months: No Number of Cigarettes Smoked Daily: 0 Information on smoking cessation initiated: No Hx Alcohol Use: No Drug/Substance Use Hx: No Substance Use Type: Alcohol Hx Substance Use Treatment: No *Physical Exam - Vital Signs Last Vital Signs Temp Pulse Resp BP Pulse Ox 99.0 F 80 16 176/82 H 96 05/13/18 20:44 05/13/18 20:44 05/13/18 20:44 05/13/18 20:44 05/13/18 20:44 ED Treatment Course - LABORATORY CBC & Chemistry Diagram: 05/13/18 23:56 05/13/18 23:56 - RADIOLOGY Radiology Studies Ordered: Category Date Time Status CHEST PA & LAT [RAD] Stat Radiology 05/13/18 21:22 Ordered Medical Decision Making - Medical Decision Making 05/14/18 17:45 patient re-located to Main ER for eval and management *DC/Admit/Observation/Transfer Diagnosis at time of Disposition: Cough - Discharge Dispostion Disposition: HOME Condition at time of disposition: Stable - Prescriptions Prescriptions: Azithromycin [Zithromax 250mg Tablets -] 250 mg PO UTDICT #6 tab Furosemide [Lasix] 20 mg PO DAILY #14 tablet - Referrals Referrals: Shaggy Cho [Primary Care Provider] - - Patient Instructions Printed Discharge Instructions: DI for Cough -- Adult Additional Instructions: You were seen in the emergency department for cough and pain on your right side. We did blood work which was normal. Your Chest X-Ray and an ultrasound of your legs was also normal. Follow-up with your primary care doctor on Tuesday to discuss this ED visit and to further evaluate your cough. Your care is not complete until you do so. We sent prescriptions to your pharmacy: Azithromycin Lasix Continue taking home medications as prescribed. Return to the emergency department if you have any of the following: -Difficulty breathing, unrelieved by medications -Tightness in chest, unrelieved by medications -Chest pain If you think you have an emergency, call for medical help right away. === Usted fue atendido en el departamento de emergencias por tos y dolor en el lado derecho. Hicimos un anlisis de yael que era normal. Baez radiografa de trax y john ecografa de vera piernas tambin fueron normales. Amrita un seguimiento con baez mdico de atencin primaria el lunes para analizar esta visita al ED y para evaluar baez tos. Tu cuidado no est completo hasta que lo hagas. Enviamos recetas a baez farmacia: Azitromicina Lasix Continuar tomando los medicamentos en casa segn lo prescrito. Regrese al departamento de emergencias si tiene alguno de los siguientes: -Dificultad para respirar, no aliviada por los medicamentos. -Asistencia en el pecho, no aliviada por medicamentos. -Dolor de pecho Si keith que tiene john emergencia, llame a un mdico de inmediato. - Post Discharge Activity
--- NOTE | 2018-05-13 21:41 | PDOC ---
History of Present Illness - General Chief Complaint: Pain Stated Complaint: PAIN Time Seen by Provider: 05/13/18 21:19 - History of Present Illness Initial Comments: 72yo M with PMH of HTN, DM, Asthma, GERD, heart surgery presenting with cough x 1 week and right sided rib pain. Patient reports that his cough is nonproductive. His side pain started today and is associated with cough; it is non-palpable and non-pleuritic. He has used his asthma inhalers at home with minimal relief. Has not taken any other medicines at home. Denies nasal congestion or throat pain. Reports dyspnea on exertion and leg swelling. His primary care doctor prescribed him lasix 20 for the leg swelling which ran out about a week ago. Last saw the student worker a week ago and was told he had a normal workup. No fevers, chills, nausea, vomiting, or abdominal pain. Past History - Past Medical History Allergies/Adverse Reactions: Allergies Allergy/AdvReac Type Severity Reaction Status Date / Time No Known Allergies Allergy Verified 05/13/18 20:46 Home Medications: Ambulatory Orders Ibuprofen [Motrin -] 800 mg PO TID PRN 11/24/13 Insulin (Levemir) [Levemir Flexpen -] 10 units SQ BID 11/24/13 Olmesartan Med/Amlodipine/Hctz [Tribenzor 40-10-12.5 mg Tablet] 1 each PO DAILY 11/24/13 Aspirin [ASA -] 81 mg PO DAILY 08/14/17 Atorvastatin Ca [Lipitor] 40 mg PO HS 08/14/17 Carvedilol [Coreg] 12.5 mg PO BID 08/14/17 Folic Acid 1 mg PO DAILY 08/14/17 Gabapentin [Neurontin -] 100 mg PO Q12H 08/14/17 Insulin Degludec/Liraglutide [Xultophy 100 Unit-3.6MG/ml Pen] 30 unit SQ AM Insulin Lispro [Humalog] 25 unit SQ AM 08/14/17 Azithromycin [Zithromax 250mg Tablets -] 250 mg PO UTDICT #6 tab 05/14/18 Furosemide [Lasix] 20 mg PO DAILY #14 tablet 05/14/18 COPD: No Diabetes: Yes HTN: Yes Hypercholesterolemia: Yes - Surgical History Cardiac Surgery: Yes (valve replacement) Orthopedic Surgery: Yes (2010 right leg sx- metal inserted) - Immunization History Immunization Up to Date: Yes - Suicide/Smoking/Psychosocial Hx Smoking Status: No Smoking History: Never smoked Have you smoked in the past 12 months: No Number of Cigarettes Smoked Daily: 0 Information on smoking cessation initiated: No Hx Alcohol Use: No Drug/Substance Use Hx: No Substance Use Type: Alcohol Hx Substance Use Treatment: No Review of Systems - Review of Systems Comments:: Constitutional: no fever, no chills HEENT: no throat pain, no dysphagia Cardiovascular: no chest pain, no palpitations Respiratory: +cough, +shortness of breath Gastrointestinal: no abdominal pain, no nausea, no vomiting, no diarrhea, no constipation Genitourinary: no dysuria, no frequency Musculoskeletal: no myalgia, no arthralgia Skin: no rash, no itching Neurologic: no headache, no dizziness *Physical Exam - Vital Signs Last Vital Signs Temp Pulse Resp BP Pulse Ox 99.0 F 80 16 176/82 H 96 05/13/18 20:44 05/13/18 20:44 05/13/18 20:44 05/13/18 20:44 05/13/18 20:44 - Physical Exam Comments: General: Awake, alert, and fully oriented, in no acute distress Head: no signs of trauma Eyes: EOMI, sclera anicteric ENT: Moist mucus membranes Neck: Normal ROM, supple Lungs: Lungs clear, Normal breath sounds Cardio: Regular rhythm, S1 and S2 present Abdomen: Soft, nontender. No guarding, no rebound, no masses Extremities: Normal range of motion, Distal pulses present, bilateral pitting edema SKIN: Warm, Dry, normal turgor Neurologic: Cranial nerves II through XII grossly intact. Normal speech ED Treatment Course - LABORATORY CBC & Chemistry Diagram: 05/13/18 23:56 05/13/18 23:56 Medical Decision Making - Medical Decision Making 72yo M with PMH of HTN, DM, Asthma, GERD, heart surgery presenting with cough x 1 week and right sided rib pain. -DDX includes but not limited to pneumonia, bronchitis, DVT/PE, URI, CHF, asthma , COPD -Labs: WBC=14.4, FRZ=622.6, Tpn negative -EKG: rate 79, QTc 469, NSR, RBBB, TWI in anterolateral leads (similar to previous EKG on 08/14/17) -CXR: negative for acute pathology (my impression) -Ofirmev 1g: reports minimal relief -Duplex ordered to evaluate for DVT/PE -Will cover for pneumonia with Zpak and CHF with lasix -Patient reports feeling better after receiving lasix -Duplex scans negative for DVT -Discharged. Patient amenable with plan to follow-up with primary care doctor on Tuesday. 05/14/18 02:58 *DC/Admit/Observation/Transfer Diagnosis at time of Disposition: Cough - Discharge Dispostion Disposition: HOME Condition at time of disposition: Stable - Prescriptions Prescriptions: Azithromycin [Zithromax 250mg Tablets -] 250 mg PO UTDICT #6 tab Furosemide [Lasix] 20 mg PO DAILY #14 tablet - Referrals Referrals: Shaggy Cho [Primary Care Provider] - - Patient Instructions Printed Discharge Instructions: DI for Cough -- Adult Additional Instructions: You were seen in the emergency department for cough and pain on your right side. We did blood work which was normal. Your Chest X-Ray and an ultrasound of your legs was also normal. Follow-up with your primary care doctor on Tuesday to discuss this ED visit and to further evaluate your cough. Your care is not complete until you do so. We sent prescriptions to your pharmacy: Azithromycin Lasix Continue taking home medications as prescribed. Return to the emergency department if you have any of the following: -Difficulty breathing, unrelieved by medications -Tightness in chest, unrelieved by medications -Chest pain If you think you have an emergency, call for medical help right away. === Usted fue atendido en el departamento de emergencias por tos y dolor en el lado derecho. Hicimos un anlisis de yael que era normal. Baez radiografa de trax y john ecografa de vera piernas tambin fueron normales. Amrita un seguimiento con baez mdico de atencin primaria el para analizar esta visita al ED y para evaluar baez tos. Tu cuidado no est completo hasta que lo hagas. Enviamos recetas a baez farmacia: Azitromicina Lasix Continuar tomando los medicamentos en casa segn lo prescrito. Regrese al departamento de emergencias si tiene alguno de los siguientes: -Dificultad para respirar, no aliviada por los medicamentos. -Asistencia en el pecho, no aliviada por medicamentos. -Dolor de pecho Si keith que tiene john emergencia, llame a un mdico de inmediato. - Post Discharge Activity
--- NOTE | 2018-05-13 22:23 | PDOC ---
Attending Attestation - Resident Resident Name: Rocio Padilla - ED Attending Attestation I have performed the following: I have examined & evaluated the patient, The case was reviewed & discussed with the resident, I agree w/resident's findings & plan, Exceptions are as noted - HPI HPI: 05/14/18 01:21 Mr Murguia is a 72-year-old male h/o IDDM, HTN, HLD, Valve replacement he presents to the ER with a complaint of cough and rib pain due to cough Pt denies fevers or chills He does report that he feels short of breath Of note, pt was started on lasix by PMD on 04/28 He was given 1 week of lasix 20mg daily, completing this course on 05/05 Over the past week, he has noted a cough, increasing lower extremity edema Cough is dry Pt reports that he is short of breath He can lay on 1 pillow in bed 05/14/18 01:39 - Physicial Exam PE: 05/14/18 01:39 05/14/18 01:23 On examination: Pt is awake and alert Intermittently coughing, non productive RRR Faint end expiratory wheeze RLL No abd tenderness bilateral pitting edema, left greater than right - Medical Decision Making DD: Pneumonia, Bronchitis, Asthma exacerbation, CHF Will do: Labs CXR Lasix Consider Azithromycin and Medrol dose pack CXR: Increased vascular marking, no effusions, no consolidation, no infiltrate 05/14/18 01:39 05/14/18 01:39 Laboratory Tests 05/13/18 05/13/18 05/13/18 23:56 23:56 23:56 WBC 14.4 H Hgb 14.8 Hct 44.8 Plt Count 117 L INR 1.02 BUN 15 Creatinine 1.3 Troponin I 0.02 B-Natriuretic Peptide 563.6 H 05/14/18 01:39 Duplex - NSR rate of 79 bpm, axis nml, RBBB, no st elevation or depression
[2018-05-13] MEDS ORDERED: ACETAMINOPHEN 1000 MG/100 ML VIAL (NON FORMULARY) IVPB ONE (22:32)
[2018-05-13] MEDS ORDERED: ACETAMINOPHEN INJECTION 100 ML IVPB ONE (23:40)
[2018-05-14 00:09] LABS: BASO % 0.3 % (0-2.0); EOS % 7.5 % (0-4.5); HEMATOCRIT 44.8 % (35.4-49); HEMOGLOBIN 14.8 GM/dL (11.7-16.9); LYMPH % 12.1 % (8-40); MCHC 33.1 g/dl (32.0-35.9); MEAN CELL VOLUME 90.5 fl (80-96); MEAN PLT VOLUME 10.6 fl (7.5-11.1); MONO % 9.1 % (3.8-10.2); PLATELET COUNT 117 K/MM3 (134-434); RBC 4.94 M/mm3 (4.00-5.60); RDW 13.7 % (11.9-15.9); WHITE BLOOD COUNT 14.4 K/mm3 (4.0-10.0)
[2018-05-14 00:20] LABS: INR 1.02 (0.83-1.09)
[2018-05-14 00:32] LABS: ALBUMIN 4.2 g/dl (3.4-5.0); ALK PHOS 99 U/L (45-117); ANION GAP 8 MMOL/L (8-16); BILIRUBIN,TOTAL 0.7 mg/dL (0.2-1); BLOOD UREA NITROGEN 15 mg/dL (7-18); CALCIUM 8.9 mg/dL (8.5-10.1); CHLORIDE 107 mmol/L (98-107); CO2 28 mmol/L (21-32); CREATININE 1.3 mg/dL (0.55-1.3); GLUCOSE,RANDOM 113 mg/dL (74-106); N-TERMINAL BNP 563.6 pg/ml (5-125); POTASSIUM 4.1 mmol/L (3.5-5.1); SGOT/AST 25 U/L (15-37); SGPT/ALT 42 U/L (13-61); SODIUM 142 mmol/L (136-145); TOT PROT 7.8 g/dl (6.4-8.2)
[2018-05-14] MEDS ORDERED: FUROSEMIDE 40 MG/4 ML INJECTABLE VIAL IVPUSH ONE (01:14)
[2018-05-14] MEDS ORDERED: AZITHROMYCIN IVPB 500 MG in DEXTROSE 5%-WATER - 250 ML IVPB ONE (01:16)
[2018-05-14] MEDS ORDERED: AZITHROMYCIN IVPB 500 MG/250 ML BAG IVPB ONE (01:50)
[2018-05-14] MEDS ORDERED: FUROSEMIDE 40 MG/4 ML INJECTABLE VIAL ONE (01:50)
[2018-05-14 03:06] VITALS: BP 133/75; PULSE 73; TEMP 98.4
--- NOTE | 2018-05-14 13:58 | EKG ---
Test Reason : Blood Pressure : / mmHG Vent. Rate : 079 BPM Atrial Rate : 079 BPM P-R Int : 168 ms QRS Dur : 136 ms QT Int : 418 ms P-R-T Axes : 054 -05 069 degrees QTc Int : 479 ms NORMAL SINUS RHYTHM RIGHT BUNDLE BRANCH BLOCK ABNORMAL ECG T WAVE ABNORMALITY, CONSIDER INFEROLATERAL ISCHEMIA Confirmed by MD Michael Edward ([id number]) on 05/14/2018 1:57:42 PM Referred By: Confirmed By:Kristian Michael MD
== END 2018-05-14 03:06 | disposition home or self-care (01) ==
LOC: JER 20:29 → JERFT 20:29 → JER 05-14 03:06
PROC: 3E03329 Introduction of Other Anti-infective into Peripheral Vein, Percutaneous Approach (ICD-10-PCS; principal; 2018-05-13)
PROC: 3E033NZ Introduction of Analgesics, Hypnotics, Sedatives into Peripheral Vein, Percutaneous Approach (ICD-10-PCS; 2018-05-13)
PROC: 3E033GC Introduction of Other Therapeutic Substance into Peripheral Vein, Percutaneous Approach (ICD-10-PCS; 2018-05-13)
DX: R05 Cough (principal); R60.0 Localized edema; I10 Essential (primary) hypertension; E78.00 Pure hypercholesterolemia, unspecified; E11.9 Type 2 diabetes mellitus without complications; Z79.4 Long term (current) use of insulin; Z95.2 Presence of prosthetic heart valve
CPT/HCPCS: 36415; 71046-TC-FY; 80053; 83880; 84484; 85025; 85610; 93005; 93010; 93970-TC; 96365; 96375; 99282-25; J0131

== ENCOUNTER 2019-01-24 07:16 | Day surgery (SDC) | payer MEDICARE, OTHER ==
[2019-01-23 16:51] VITALS: BMI 38.7
[2019-01-24] MEDS ORDERED: CYCLOPENTOLATE HCL 1% OPHTH SOLN 2 ML BOTTLE ONE (07:21)
[2019-01-24] MEDS ORDERED: PHENYLEPHRINE 2.5% OPHTH SOLN 15 ML BOTTLE ONE (07:21)
[2019-01-24] MEDS ORDERED: TROPICAMIDE 1% OPHTH SOLN 15 ML BOTTLE ONE (07:21)
[2019-01-24] MEDS ORDERED: KETOROLAC TROMETHAMINE 0.5% EYE DROP 1 DROP DROPS ONE (07:21)
[2019-01-24] MEDS ORDERED: OFLOXACIN 0.3% OPHTHALMIC SOLUTION 5 ML BOTTLE ONE (07:21)
[2019-01-24] MEDS ORDERED: BSS (NA/CA/MG/K) BALANCED SALT SOLUTION OPHTH SOLN 15 ML BOTTLE ONE (07:35)
[2019-01-24] MEDS ORDERED: LIDOCAINE HCL/PF 1% SDV 5ML VIAL ONE (07:35)
[2019-01-24] MEDS ORDERED: TETRACAINE 0.5% OPHTH SOLN 2 ML BOTTLE ONE (07:35)
[2019-01-24] MEDS: TROPICAMIDE 1% OPHTH SOLN 15 ML BOTTLE OP SCH ×3 (07:44→08:28)
[2019-01-24] MEDS: PHENYLEPHRINE 2.5% OPHTH SOLN 15 ML BOTTLE OP SCH ×3 (07:44→08:27)
[2019-01-24] MEDS: CYCLOPENTOLATE HCL 1% OPHTH SOLN 2 ML BOTTLE OP SCH ×3 (07:44→08:27)
[2019-01-24] MEDS: KETOROLAC TROMETHAMINE 0.5% EYE DROP 1 DROP DROPS OP SCH ×3 (07:44→08:27)
[2019-01-24] MEDS: OFLOXACIN 0.3% OPHTHALMIC SOLUTION 5 ML BOTTLE OP SCH ×3 (07:44→08:27)
[2019-01-24] MEDS ORDERED: ACETAMINOPHEN 325 MG TABLET (FP) PO PRN (08:13)
[2019-01-24] MEDS ORDERED: PHENYLEPHRINE/KETOROLAC 4 ML VIAL IO ONE ×2 (09:00→09:25)
[2019-01-24] MEDS ORDERED: MIDAZOLAM HCL 2 MG/2 ML SINGLE DOSE VIAL ONE (09:04)
[2019-01-24] MEDS ORDERED: TETRACAINE 0.5% OPHTH SOLN 2 ML BOTTLE OS ONE (09:10)
[2019-01-24] MEDS ORDERED: POVIDONE-IODINE 5% OPHTHALMIC PREP 30 ML SOLUTION OS ONE (09:11)
[2019-01-24] MEDS ORDERED: CHONDROITIN SU A/HYALUR SOD 1 KIT IO ONE (09:20)
[2019-01-24] MEDS ORDERED: LIDOCAINE HCL 1% PRESERVATIVE FREE - 30ML VIAL IO ONE (09:20)
[2019-01-24] MEDS ORDERED: BSS (NA/CA/MG/K) BALANCED SALT SOLUTION OPHTH SOLN 15 ML BOTTLE OS ONE (09:20)
[2019-01-24] MEDS ORDERED: EPINEPHrine/PF 1 MG/1 ML (1:1,000) AMPULE SQ ONE (09:46)
[2019-01-24] MEDS ORDERED: EPINEPHrine/PF 1 MG/1 ML (1:1,000) AMPULE ONE (10:18)
[2019-01-24 10:45] VITALS: PULSE 61
[2019-01-24 11:01] VITALS: BP 142/70; TEMP 98.6
--- NOTE | 2019-01-24 11:16 | SPEC ---
DATE OF OPERATION: DATE OF DICTATION: 01/24/2019 PREOPERATIVE DIAGNOSIS: Cataract, left eye. POSTOPERATIVE DIAGNOSIS: Cataract, left eye. OPERATION: Phacoemulsification with posterior chamber intraocular lens implantation, left eye. Lens used [id number], 21.5 diopter power, serial number [id number]. SURGEON: Silvana Jones M.D. ANESTHESIA: Topical MAC. COMPLICATIONS: None. PROCEDURE: The patient was brought to the operating room and correctly identified along with the operative site and the correct intraocular lens molina. The patient was then prepped and draped in the usual sterile fashion including 5% Betadine solution in the conjunctival sac and an eyelid drape. An eyelid speculum was then placed in the eye. A paracentesis port was created and approximately 0.5 mL of preservative free Lidocaine was then injected into the eye. Viscoelastic was then injected to inflate the anterior chamber. A temporal clear corneal wound was created. A continuous circular capsulorrhexis was performed. The nucleus was then hydrodissected with BSS and removed with phacoemulsification. The remaining cortical material was irrigated and aspirated. Viscoelastic was injected to inflate the capsular bag and the intraocular lens was then implanted into the capsular bag. The remaining Viscoelastic was irrigated and aspirated from the eye. The IOL was noted to be well centered and completely covered by the anterior capsulorrhexis. Topical vancomycin was placed and the eye patched and shielded. All wounds were tested and found to be watertight. No suture was placed. The eye was then shielded. The patient was then discharged from the operating room in stable condition. SILVANA JONES M.D. [id number]
== END 2019-01-24 10:55 | disposition home or self-care (01) ==
LOC: JASU-SURG 07:16
PROVIDERS: ATTEND Ophthalmology
PROC: 08RK3JZ Replacement of Left Lens with Synthetic Substitute, Percutaneous Approach (ICD-10-PCS; principal; 2019-01-24 09:00)
DX: H26.9 Unspecified cataract (principal); I10 Essential (primary) hypertension; J44.9 Chronic obstructive pulmonary disease, unspecified; E11.9 Type 2 diabetes mellitus without complications; E66.01 Morbid (severe) obesity due to excess calories
CPT/HCPCS: 82962; C9447

== ENCOUNTER 2019-02-07 06:08 | Day surgery (SDC) | payer MEDICARE, OTHER | END 2019-02-07 09:50 | disposition home or self-care (01) | LOC: JASU-SURG 06:08 ==

== ENCOUNTER 2024-02-18 17:59 | Observation (INO) | payer OTHER ==
[2024-02-18] MEDS ORDERED: ACETAMINOPHEN 325 MG TABLET (FP) ONE (19:50)
[2024-02-18] MEDS: ACETAMINOPHEN 500 MG TABLET (FP) PO ONE ×2 (19:52→22:22)
[2024-02-18] MEDS: ACETAMINOPHEN 1000 MG/100 ML BAG IVPB ONE (19:52)
[2024-02-18] MEDS ORDERED: IBUPROFEN 600 MG TABLET (FP) PO ONE (22:21)
[2024-02-18] MEDS: IBUPROFEN 600 MG TABLET (FP) PO ONE (22:22)
[2024-02-18 23:05] LABS: BASO % 0.4 % (0-2.0); EOS % 8.7 % (0-4.5); HEMATOCRIT 44.3 % (35.4-49); HEMOGLOBIN 14.9 GM/dL (11.7-16.9); LYMPH % 17.6 % (8-40); MCHC 33.7 g/dl (32.0-35.9); MEAN CELL VOLUME 91.9 fl (80-96); MEAN PLT VOLUME 9.5 fl (7.5-11.1); MONO % 9.9 % (3.8-10.2); NEUT % 63.4 % (42.8-82.8); PLATELET COUNT 133 10^3/uL (134-434); RBC 4.82 M/mm3 (4.00-5.60); RDW 13.6 % (11.9-15.9); WHITE BLOOD COUNT 12.5 K/mm3 (4.0-10.0)
[2024-02-18 23:32] LABS: POTASSIUM 4.2 mmol/L (3.5-5.1)
[2024-02-18 23:34] LABS: CALCIUM 8.8 mg/dL (8.5-10.1)
[2024-02-18 23:35] LABS: ALBUMIN 3.7 g/dl (3.4-5.0); BLOOD UREA NITROGEN 22.7 mg/dL (7-18)
[2024-02-18 23:38] LABS: CREATININE 1.3 mg/dL (0.55-1.3)
[2024-02-18 23:40] LABS: BILIRUBIN,TOTAL 0.7 mg/dL (0.2-1); TOT PROT 6.7 g/dl (6.4-8.2)
[2024-02-19] MEDS ORDERED: ALBUTEROL SO4 HFA INHALER IH PRN (02:01)
[2024-02-19 03:06] VITALS: BMI 34.5
[2024-02-19] MEDS: INSULIN ASPART SLIDING SCALE (NOVOLOG) 1 VIAL SQ SCH (06:11)
[2024-02-19 09:15] LABS: BASO % 0.4 % (0-2.0); EOS % 7.9 % (0-4.5); HEMATOCRIT 46.3 % (35.4-49); HEMOGLOBIN 15.7 GM/dL (11.7-16.9); LYMPH % 25.3 % (8-40); MCH 30.9 pg (25.7-33.7); MCHC 33.9 g/dl (32.0-35.9); MEAN CELL VOLUME 91.3 fl (80-96); MEAN PLT VOLUME 9.5 fl (7.5-11.1); MONO % 10.2 % (3.8-10.2); NEUT % 56.2 % (42.8-82.8); PLATELET COUNT 140 10^3/uL (134-434); RBC 5.07 M/mm3 (4.00-5.60); RDW 13.4 % (11.9-15.9); WHITE BLOOD COUNT 11.2 K/mm3 (4.0-10.0)
[2024-02-19 09:22] LABS: INR 1.01 (0.83-1.09); PROTHROMBIN TIME (PATIENT) 11.4 SEC (9.7-13.0)
[2024-02-19 09:38] LABS: POTASSIUM 3.5 mmol/L (3.5-5.1)
[2024-02-19 09:41] LABS: ALBUMIN 3.7 g/dl (3.4-5.0); BLOOD UREA NITROGEN 19.5 mg/dL (7-18); CALCIUM 8.8 mg/dL (8.5-10.1); MAGNESIUM 2.4 mg/dL (1.8-2.4)
[2024-02-19 09:44] LABS: CREATININE 1.2 mg/dL (0.55-1.3)
[2024-02-19 09:45] LABS: PHOSPHOROUS 3.2 mg/dL (2.5-4.9)
[2024-02-19 09:46] LABS: TOT PROT 6.9 g/dl (6.4-8.2)
[2024-02-19] MEDS ORDERED: ASPIRIN 81 MG CHEWABLE TABLETS PO SCH (10:00)
[2024-02-19] MEDS ORDERED: PATIENT'S OWN MEDICATION (NON-FORMULARY) (Budesonide/Glycopyr/Formoterol [Breztri Aerosphe IH SCH (10:00)
[2024-02-19] MEDS ORDERED: PATIENT'S OWN MEDICATION (NON-FORMULARY) (Empagliflozin 25 MG Tablet) PO SCH (10:00)
[2024-02-19] MEDS ORDERED: INSULIN (LEVEMIR) 100 UNITS/ML UNITS SQ SCH ×2 (10:00→22:00)
[2024-02-19] MEDS: INSULIN (LEVEMIR) 100 UNITS/ML UNITS SQ SCH (10:09)
[2024-02-19] MEDS: CYANOCOBALAMIN 1,000 MCG TABLET (FP) PO SCH (10:09)
[2024-02-19] MEDS: amLODIPine BESYLATE 10 MG TABLET (FP) PO SCH (10:09)
[2024-02-19] MEDS: LOSARTAN POTASSIUM 50 MG TABLET PO SCH (10:09)
[2024-02-19 10:48] LABS: EPI CELLS 15 /uL (0-25.1); HYALINE CASTS 0 /uL (0-3.1); PH,URINE 6.5 (5.0-8.0); URINE APPEARANCE CLEAR; URINE BACTERIA 122 /uL (0-1359); URINE BILIRUBIN NEGATIVE (NEGATIVE); URINE COLOR YELLOW; URINE GLUCOSE (UA) 3+ (NEGATIVE); URINE KETONE NEGATIVE (NEGATIVE); URINE LEUK ESTERASE NEGATIVE (NEGATIVE); URINE NITRITE NEGATIVE (NEGATIVE); URINE PROTEIN 1+ (NEGATIVE); URINE UROBILINOGEN 0.2 mg/dL (0.2-1.0); URINE WBC 7 /uL (0-25.8)
[2024-02-19 10:50] LABS: URINE RBC 19.7 /uL (0-23.9)
[2024-02-19] MEDS: ATENOLOL 50 MG TABLET (FP) PO SCH (12:18)
[2024-02-19] MEDS: FAMOTIDINE 40 MG TABLET PO SCH (12:32)
[2024-02-19] MEDS: ATORVASTATIN CA 20 MG TABLET (FP) PO SCH (22:23)
[2024-02-19] MEDS: TAMSULOSIN HCL 0.4 MG CAP PO SCH (22:24)
[2024-02-19] MEDS: ACETAMINOPHEN 1000 MG/100 ML BAG IVPB PRN (22:29)
[2024-02-20 10:48] LABS: POTASSIUM 3.8 mmol/L (3.5-5.1)
[2024-02-20 10:50] LABS: BASO % 0.4 % (0-2.0); EOS % 8.5 % (0-4.5); HEMATOCRIT 43.9 % (35.4-49); LYMPH % 19.6 % (8-40); MCH 31.1 pg (25.7-33.7); MEAN CELL VOLUME 91.4 fl (80-96); MEAN PLT VOLUME 9.7 fl (7.5-11.1); MONO % 11.4 % (3.8-10.2); NEUT % 60.1 % (42.8-82.8); PLATELET COUNT 125 10^3/uL (134-434); RBC 4.81 M/mm3 (4.00-5.60); RDW 13.4 % (11.9-15.9); WHITE BLOOD COUNT 7.7 K/mm3 (4.0-10.0)
[2024-02-20 10:58] LABS: ALBUMIN 3.5 g/dl (3.4-5.0); BLOOD UREA NITROGEN 17.2 mg/dL (7-18)
[2024-02-20 11:01] LABS: CREATININE 1.1 mg/dL (0.55-1.3)
[2024-02-20 11:03] LABS: BILIRUBIN,TOTAL 1.1 mg/dL (0.2-1); TOT PROT 6.6 g/dl (6.4-8.2)
[2024-02-20] MEDS ORDERED: INSULIN (LEVEMIR) 100 UNITS/ML UNITS SQ ONE (17:28)
[2024-02-21 15:13] VITALS: BP 164/77; PULSE 52; RESP 19; TEMP 96.2
== END 2024-02-21 12:35 | disposition home or self-care (01) ==
LOC: JER 17:59 → JERBED 02-19 01:05 → J5S 02-19 03:18
PROVIDERS: ADMIT Internal Medicine; ATTEND Family Medicine
PROC: 3E033NZ Introduction of Analgesics, Hypnotics, Sedatives into Peripheral Vein, Percutaneous Approach (ICD-10-PCS; principal; 2024-02-19)
PROC: 3E013VG Introduction of Insulin into Subcutaneous Tissue, Percutaneous Approach (ICD-10-PCS; 2024-02-19)
DX: M54.2 Cervicalgia (principal); S09.90XA Unspecified injury of head, initial encounter; W18.39XA Other fall on same level, initial encounter; Y93.89 Activity, other specified; Y92.008 Other place in unspecified non-institutional (private) residence as the place of occurrence of the external cause; J44.9 Chronic obstructive pulmonary disease, unspecified; E78.5 Hyperlipidemia, unspecified; M54.9 Dorsalgia, unspecified; M48.02 Spinal stenosis, cervical region
CPT/HCPCS: 36415; 70450-TC; 72125-TC; 72141-TC; 73630-TC-LT; 80053; 81003; 82962; 83036; 83735; 84100; 85025; 85610; 87086; 87635; 93005; 93010; 93306-TC; 96372; 96374; 97116-GP; 97161-GP; 99285-25; G0378; J0131

== ENCOUNTER 2025-03-04 12:09 | Emergency (ER) | payer OTHER ==
[2025-03-04 12:22] VITALS: BP 145/67; PULSE 54; RESP 19; TEMP 98; BMI 38.9
[2025-03-04] MEDS ORDERED: IBUPROFEN 600 MG TABLET (FP) PO ONE (12:57)
[2025-03-04] MEDS ORDERED: ACETAMINOPHEN 325 MG TABLET (FP) ONE (12:58)
[2025-03-04] MEDS ORDERED: METHOCARBAMOL 500 MG TABLET ONE (12:58)
[2025-03-04] MEDS ORDERED: LIDOCAINE 5% TOPICAL PATCH ONE (13:00)
[2025-03-04] MEDS: IBUPROFEN 600 MG TABLET (FP) PO ONE (13:07)
[2025-03-04] MEDS: METHOCARBAMOL 500 MG TABLET PO ONE (13:07)
[2025-03-04] MEDS: LIDOCAINE 5% TOPICAL PATCH TP ONE (13:07)
[2025-03-04] MEDS: ACETAMINOPHEN 500 MG TABLET (FP) PO ONE (13:07)
[2025-03-04] MEDS ORDERED: LIDOCAINE PATCH REMOVAL MC ONE (22:00)
== END 2025-03-04 14:25 | disposition home or self-care (01) ==
LOC: JERFT 12:09
DX: M54.50 Low back pain, unspecified (principal); R20.2 Paresthesia of skin; M79.661 Pain in right lower leg
CPT/HCPCS: 99283-25